=== PATIENT | male | born 1955 | race Two or more races ===

== ENCOUNTER 2023-11-27 11:23 | Inpatient (IN) | payer MEDICARE, BC ==
[2023-11-25 10:54] LABS: Basophils # (auto) 0 10 ^3/uL (0-0.2); Basophils % (auto) 0.3 % (0.0-2.0); Eosinophils # (auto) 0.1 10 ^3/uL (0-0.8); Eosinophils % (auto) 1.7 % (0.0-7.0); Hematocrit 47.4 % (41.0-53.0); Hemoglobin 16.7 g/dL (13.5-17.5); Lymphocytes # (auto) 1.2 10 ^3/uL (0.4-5.4); Lymphocytes % (auto) 15.2 % (10.0-50.0); Mean Corpuscular Hemoglobin 32.4 pg (28.0-32.0); Mean Corpuscular Hgb Conc. 35.3 g/dL (32.0-36.0); Mean Corpuscular Volume 91.8 fL (80.0-100.0); Monocytes # (auto) 0.5 10 ^3/uL (0-1.3); Monocytes % (auto) 7.1 % (0.0-12.0); Neutrophils # (auto) 5.8 10 ^3/uL (1.6-8.6); Neutrophils % (auto) 75.7 % (37.0-80.0); Nucleated Red Blood Cells % 0.1 %; Red Blood Cells 5.17 10^6/uL (4.5-5.90); Red Cell Distribution Width 14.1 % (11.8-14.3); White Blood Cell 7.6 10^3/uL (4.4-10.8)
[2023-11-25 10:56] LABS: INR 1.07 (0.9-1.15); Partial Thromboplastin Time 30.1 SEC (24.5-34.5); Prothrombin Time 11.3 sec (9.3-11.8)
[2023-11-25 11:25] LABS: Alanine Aminotransferase 16 U/L (7-40); Albumin 4.4 g/dL (3.2-4.8); Alkaline Phosphatase 78 U/L (46-116); Anion Gap 4 (5-15); Aspartate Aminotransferase 11 U/L (13-40); BUN/Creatinine Ratio 13.8 (10.0-20.0); Bilirubin, Total 0.9 mg/dL (0.2-1.0); Blood Urea Nitrogen 13 mg/dL (9-23); Calcium 9.4 mg/dL (8.7-10.4); Carbon Dioxide 28 mmol/L (20-30); Chloride 109 mmol/L (98-107); Glucose 93 mg/dL (74-106); Potassium 4.4 mmol/L (3.5-5.1); Sodium 141 mmol/L (136-145); Total Protein 6.7 g/dL (5.7-8.2)
[2023-11-25 13:47] LABS: Urine Bacteria None Seen /hpf (None Seen)
[2023-11-25 14:00] LABS: Urine Blood Negative /uL (Negative); Urine Clarity Clear (Clear); Urine Color Yellow (Yellow); Urine Mucus FEW (None Seen); Urine Protein, UAD TRACE (Negative); Urine Specific Gravity 1.028 (1.001-1.035); Urine Urobilinogen 2 mg/dL (Negative); Urine WBC 2 /hpf (0 - 3); Urine pH 5.5 (5.0-9.0)
[~2023-11-27] VITALS: Ht 175.3 cm; Wt 94.9 kg
[~2023-11-27 11:23] MED LIST: LATA0.008 OP; LISI40TA16 PO; TIMO0.5S28 OP
[2023-11-27] MEDS: ceFAZolin 2 GM/D5W50ml 50 ML IV ONE (13:19)
[2023-11-27] MEDS: CELECOXIB 100 MG CAP PO ONE (13:30)
[2023-11-27] MEDS: ACETAMINOPHEN IV 1000 MG/100ML (10MG/ML) IV ONE (13:30)
[2023-11-27] MEDS: GABAPENTIN 400 MG CAP PO ONE (13:30)
[2023-11-27] MEDS ORDERED: PROPOFOL 10 MG/ML 20 ML IV ONE ×4 (14:13→17:20)
[2023-11-27] MEDS ORDERED: KETOROLAC TROMETH 30 MG/ML 1ML VIAL ONE (14:13)
[2023-11-27] MEDS ORDERED: ONDANSETRON HCL 4 MG/2 ML VIAL ONE (14:13)
[2023-11-27] MEDS ORDERED: LIDOCAINE 2% (LOCAL ANESTH.) PF 5ml SDV ONE (14:13)
[2023-11-27] MEDS ORDERED: fentaNYL CITRATE 100 MCG/2 ML VL ONE (14:13)
[2023-11-27] MEDS ORDERED: KETAMINE 50mg/ML 1ml syringe ONE (14:13)
[2023-11-27] MEDS ORDERED: DexAMETHasone SOD PHOS 10MG/1ML VIAL INJ ONE ×2 (14:13→15:25)
[2023-11-27] MEDS ORDERED: GLYCOPYRROLATE 0.2 MG/ML 1ML VIAL ONE (14:13)
[2023-11-27] MEDS: ROPIVACAINE 0.5% (5MG/ML) 20ML AMPULE IJ ONE ×2 (14:51→16:20)
[2023-11-27] MEDS: TRANEXAMIC ACID 20 ML ONE (14:51)
[2023-11-27] MEDS: VANCOMYCIN HCL 1000 MG VL ONE (15:15)
[2023-11-27] MEDS ORDERED: ePHEDrine SULFATE 50 MG/ML AMP ONE (16:04)
[2023-11-27] MEDS: VANCOMYCIN HCL 1000 MG VL IV ONE (16:20)
[2023-11-27] MEDS ORDERED: oxyCODONE HCL 5MG TAB PO PRN ×2 (17:15→17:45)
[2023-11-27] MEDS ORDERED: ACETAMINOPHEN 325 MG TAB PO PRN (17:15)
[2023-11-27] MEDS: D5W/LACTATED RINGERS 1,000 ML IV SCH (17:15)
[2023-11-27 17:33] VITALS: O2SAT 95
[2023-11-27] MEDS ORDERED: HYDROmorphone HCL 2 MG/ML VL/or syr IV PRN (17:45)
[2023-11-27] MEDS ORDERED: hydrALAZINE HCL 20 MG/ML VL IV PRN (17:45)
[2023-11-27] MEDS ORDERED: ePHEDrine SULFATE 50 MG/ML AMP IV PRN (17:45)
[2023-11-27] MEDS ORDERED: ONDANSETRON HCL 4 MG/2 ML VIAL IV PRN (17:45)
[2023-11-27] MEDS ORDERED: fentaNYL CITRATE 100 MCG/2 ML VL IV PRN (17:45)
[2023-11-27] MEDS ORDERED: NALOXONE HCL 0.4 MG/ML VIAL IV PRN (17:45)
[2023-11-27] MEDS ORDERED: FLUMAZENIL 0.1 MG/ML INJ 10ML MDV IV PRN (17:45)
[2023-11-27] MEDS: KETOROLAC TROMETH 30 MG/ML 1ML VIAL IV SCH (18:00)
[2023-11-27] MEDS: ACETAMINOPHEN 325 MG TAB PO SCH (18:00)
[2023-11-27 18:30] VITALS: BP 141/85; PULSE 56; RESP 18; TEMP 98.4; O2SAT 97
[2023-11-27 20:09] VITALS: BP 141/85; PULSE 56; PULSE 69; RESP 18; TEMP 98.4; O2SAT 92; O2SAT 97
[2023-11-27 21:00] VITALS: BP 147/90; PULSE 69; RESP 18; TEMP 97; O2SAT 92
[2023-11-27] MEDS: ceFAZolin 2 GM/D5W50ml 50 ML IV SCH (21:00)
[2023-11-27] MEDS: PREGABALIN 25 MG CAP PO SCH (21:06)
[2023-11-28] MEDS: oxyCODONE HCL 5MG TAB PO PRN (00:50)
[2023-11-28 05:00] VITALS: BP 120/73; PULSE 66; RESP 17; TEMP 97.3; O2SAT 98
[2023-11-28 07:09] LABS: Anion Gap 8 (5-15); Carbon Dioxide 22 mmol/L (20-30); Chloride 109 mmol/L (98-107); Potassium 4.2 mmol/L (3.5-5.1); Sodium 139 mmol/L (136-145)
[2023-11-28 07:11] LABS: Basophils # (auto) 0 10 ^3/uL (0-0.2); Eosinophils # (auto) 0 10 ^3/uL (0-0.8); Hemoglobin 14.7 g/dL (13.5-17.5); Lymphocytes # (auto) 0.5 10 ^3/uL (0.4-5.4); Lymphocytes % (auto) 2.9 % (10.0-50.0); Mean Corpuscular Hemoglobin 31.5 pg (28.0-32.0); Mean Corpuscular Hgb Conc. 35.1 g/dL (32.0-36.0); Mean Corpuscular Volume 89.8 fL (80.0-100.0); Monocytes # (auto) 0.6 10 ^3/uL (0-1.3); Monocytes % (auto) 3.1 % (0.0-12.0); Red Blood Cells 4.68 10^6/uL (4.5-5.90); Red Cell Distribution Width 13.6 % (11.8-14.3); White Blood Cell 18.1 10^3/uL (4.4-10.8)
[2023-11-28 07:15] LABS: Blood Urea Nitrogen 11 mg/dL (9-23); Glucose 151 mg/dL (74-106)
[2023-11-28 08:00] VITALS: PULSE 79; RESP 16; O2SAT 94
[2023-11-28] MEDS: LISINOPRIL 20 MG TAB PO SCH (08:00)
[2023-11-28 08:54] VITALS: BP 107/71; PULSE 79; RESP 20; TEMP 98.3; O2SAT 94
[2023-11-28] MEDS ORDERED: LATA0.008 EACHEYE (09:00)
[2023-11-28] MEDS ORDERED: TIMO0.5S28 EACHEYE (09:00)
[2023-11-28] MEDS ORDERED: LATANOPROST 0.005 % OPTH(EYE) SOL 2.5ML OP SCH (10:00)
[2023-11-28] MEDS ORDERED: TIMOLOL MAL 0.5% OPTH(EYE) SOL 5ML OP SCH (10:00)
[2023-11-28] MEDS: ASPirin 81 mg TAB PO SCH (11:09)
[2023-11-28 12:31] VITALS: BP 114/65; PULSE 60; RESP 20; TEMP 98.3; O2SAT 93
[2023-11-28 13:00] VITALS: BP 114/65; PULSE 60; RESP 20; TEMP 98.3; O2SAT 93
[2023-11-28] MEDS ORDERED: LATANOPROST 0.005 % OPTH(EYE) SOL 2.5ML EACHEYE SCH (18:00)
[2023-11-28] MEDS ORDERED: TIMOLOL MAL 0.5% OPTH(EYE) SOL 5ML EACHEYE SCH (22:00)
[2023-11-29] MEDS ORDERED: LISINOPRIL 20 MG TAB PO SCH (08:00)
== END 2023-11-28 14:08 | disposition home or self-care (01) | DRG 470 ==
LOC: SUR 11:23 → OVERFLOW 17:18 → WEST WING 18:30
PROVIDERS: ADMIT Orthopaedic Surgery; ATTEND Internal Medicine
PROC: 0SRC069 Replacement of Right Knee Joint with Oxidized Zirconium on Polyethylene Synthetic Substitute, Cemented, Open Approach (ICD-10-PCS; principal; 2023-11-27 15:24)
DX: M17.11 Unilateral primary osteoarthritis, right knee (principal); I10 Essential (primary) hypertension; E66.9 Obesity, unspecified; H40.9 Unspecified glaucoma; Z83.3 Family history of diabetes mellitus; Z82.49 Family history of ischemic heart disease and other diseases of the circulatory system; Z68.30 Body mass index [BMI] 30.0-30.9, adult
CPT/HCPCS: 36415; 73560; 80048; 80053; 81001; 85025; 85610; 85730; 86850; 86900; 86901; 97163; G0378; J0131; J1100; J1885; J2001; J2405; J2704

== ENCOUNTER 2024-05-26 06:22 | Inpatient (IN) | payer MEDICARE, BC ==
[2024-05-22 11:30] LABS: Urine Bacteria None Seen /hpf (None Seen)
[2024-05-22 11:43] LABS: Basophils # (auto) 0 10 ^3/uL (0-0.2); Basophils % (auto) 0.4 % (0.0-2.0); Eosinophils # (auto) 0.2 10 ^3/uL (0-0.8); Eosinophils % (auto) 1.4 % (0.0-7.0); Hematocrit 47.4 % (41.0-53.0); Hemoglobin 16.3 g/dL (13.5-17.5); Lymphocytes % (auto) 8.7 % (10.0-50.0); Mean Corpuscular Hemoglobin 30.8 pg (28.0-32.0); Mean Corpuscular Hgb Conc. 34.4 g/dL (32.0-36.0); Mean Corpuscular Volume 89.4 fL (80.0-100.0); Monocytes # (auto) 0.9 10 ^3/uL (0-1.3); Monocytes % (auto) 7.5 % (0.0-12.0); Neutrophils # (auto) 9.5 10 ^3/uL (1.6-8.6); Platelet Count (auto) 205 10^3/uL (140-450); Red Cell Distribution Width 14.8 % (11.8-14.3); White Blood Cell 11.6 10^3/uL (4.4-10.8)
[2024-05-22 11:46] LABS: INR 1.09 (0.9-1.15); Partial Thromboplastin Time 28.8 SEC (24.5-34.5); Prothrombin Time 11.5 sec (9.3-11.8)
[2024-05-22 12:02] LABS: Alanine Aminotransferase 14 U/L (7-40); Albumin 4.8 g/dL (3.2-4.8); Alkaline Phosphatase 87 U/L (46-116); Anion Gap 5 (5-15); Aspartate Aminotransferase 17 U/L (13-40); BUN/Creatinine Ratio 11.2 (10.0-20.0); Bilirubin, Total 0.8 mg/dL (0.2-1.0); Blood Urea Nitrogen 12 mg/dL (9-23); Calcium 10.1 mg/dL (8.7-10.4); Carbon Dioxide 27 mmol/L (20-31); Glucose 94 mg/dL (74-106); Potassium 4.4 mmol/L (3.5-5.1); Sodium 140 mmol/L (136-145); Total Protein 7.4 g/dL (5.7-8.2)
[2024-05-22 12:03] LABS: Chloride 108 mmol/L (98-107)
[2024-05-22 12:39] LABS: Urine Blood Negative /uL (Negative); Urine Clarity Clear (Clear); Urine Color Light-Yellow (Yellow); Urine Hyaline Cast MOD /lpf (0 - 2); Urine Mucus FEW (None Seen); Urine Protein, UAD TRACE (Negative); Urine Squamous Epithelial Cell None Seen /hpf (<5); Urine Urobilinogen Normal (Negative); Urine WBC 2 /hpf (0 - 3)
[~2024-05-26] VITALS: Ht 175.3 cm; Wt 100.0 kg
[~2024-05-26 06:22] MED LIST changes: +LATA0.008 EACHEYE; -LATA0.008 OP; +NAP500T PO; +ROSU40TA81 PO; +TIMO0.5S28 EACHEYE; -TIMO0.5S28 OP
[2024-05-26] MEDS ORDERED: GLYCOPYRROLATE 0.2 MG/ML 1ML VIAL ONE (06:52)
[2024-05-26] MEDS ORDERED: LIDOCAINE 1% INJ PF 5ML AMP ONE (06:52)
[2024-05-26] MEDS ORDERED: ONDANSETRON HCL 4 MG/2 ML VIAL ONE (06:52)
[2024-05-26] MEDS ORDERED: DexAMETHasone SOD PHOS 10MG/1ML VIAL INJ ONE ×2 (06:52→07:44)
[2024-05-26] MEDS ORDERED: KETOROLAC TROMETH 30 MG/ML 1ML VIAL ONE (06:52)
[2024-05-26] MEDS ORDERED: PROPOFOL 10 MG/ML 20 ML IV ONE ×3 (06:52→09:38)
[2024-05-26] MEDS: ceFAZolin 2 GM/D5W100ml 100 ML IV ONE (07:45)
[2024-05-26] MEDS: TRANEXAMIC ACID 20 ML ONE (07:53)
[2024-05-26] MEDS: CEFEPIME 1GM/ 50ML 50 ML IV ONE (07:56)
[2024-05-26] MEDS ORDERED: PATIENTS OWN MEDICATION (Lisinopril 40 MG) PO SCH (08:00)
[2024-05-26] MEDS: VANCOMYCIN HCL 1000 MG VL ONE (08:26)
--- NOTE | 2024-05-26 09:34 | DVH ---
INDICATION: SURGERY TECHNIQUE: Single AP view of the pelvis was obtained. COMPARISON: None Findings/ IMPRESSION: Right hip arthroplasty. Refer to operative report.
[2024-05-26] MEDS ORDERED: PATIENTS OWN MEDICATION (Timolol Maleate (Timolol Maleate Ophthalmi) 1 DROP) EACHEYE SCH (10:00)
--- NOTE | 2024-05-26 10:01 | DVHOP2 ---
Operative Report - 2 Report Details Date: 05/26/24 Preop Diagnosis: RIGHT HIP DEGENERATIVE ARTHRITIS Postop Diagnosis: Right hip degenerative arthritis Surgeon: Aurora Logan MD System Support Administrator: Brea LINN Anesthesiologist: Suresh Honeycutt CRNA Anesthesia: Regional Drains: Miguel closed wound suction Implant: DonJoy origin stem size 14, standard offset, minus four neck length, 36 ceramic head, flat polyethylene liner, 56 acetabular shell with two acetabular screws Consent: The patient was informed of the risks and benefits of the procedure. These include but are not limited to complications of anesthesia, postoperative infection, incomplete relief of symptoms, recurrence of symptoms, damage to blood vessels, nerves and tendons, deep venous thrombosis, pulmonary embolism and possible need for repeat surgery in the future. Complications: None Estimated Blood Loss: 100 cc Fluids: See anesthesia record Findings: Acetabular and femoral head osteophytes, head deformity, denuded cartilage with eburnated bone Indications for Surgery: Right hip degenerative arthritis with severe pain and functional impairment despite nonoperative management Name of Procedure Performed Right total hip arthroplasty Procedure Details Procedure Details: The patient was brought to the operating room and given spinal anesthetic with adequate analgesia obtained. The patient was positioned lateral decubitus with the operative side up, stabilized with hip positioners. Axillary roll applied and lower extremities well-padded. Preop patient received IV Ancef, IV cefepime and IV tranexamic acid. Surgical timeout was performed verifying patient, laterality and procedure. The hip and lower extremity were prepped and draped in sterile fashion. Incision was made over the greater trochanter. Subcutaneous dissection and hemostasis were performed with Bovie and aqua mantis. I identified the fascia which was incised with Bovie and Charnley retractor inserted. I identified the gluteus medius that was split at the junction of its anterior and middle thirds with Bovie then incised off the anterior greater trochanter. I incised the anterior gluteus minimus which was elevated off the capsule. I elevated the reflected head of the rectus. I then performed anterior capsulectomy with Bovie. I extended capsular incision posterior medially and superior laterally. The head was dislocated. Femoral neck cut was made with saw and head removed. Head diameter was calipered on the back table. I adjusted retractors to expose the acetabulum. I circumferentially removed labral tissue with Bovie. I removed foveal tissue with Bovie, curette and rongeur. I then began reaming sequentially paying attention to inclination and version as I went. I trialed which was stable so a cetabular implant was brought into the field and tapped into the acetabulum with fair fixation achieved. I decided to augment fixation with two acetabular screws. I positioned the three holes in the posterior superior quadrant/safe zone, drilled, measured with depth gauge and applied 20 mm acetabular screw I placed a 2nd screw in similar fashion. I then brought up the flat liner which was spun to make sure there was no soft tissue entrapment then tapped in and stability verified. I then brought my attention to the proximal femur. The leg was placed in the sterile bag anteriorly. I cleaned up soft tissue at the greater trochanter shoulder with Bovie. I then used a rongeur to clip the lateral neck. I then used a box osteotome, canal finder and lateralizing rasp. I sequentially broached to size 14. I revised femoral neck cut with calcar planer. I trialed with a [0] and minus four neck length and [36] head which was stable. Intraoperative AP pelvis x-ray was obtained to verify length, offset and implant size. It was little bit long on x-ray so I removed the size 14 broach after dislocating. I inserted the 13 broach then used a calcar planer to revise femoral neck cut then again removed the 13 broach and inserted the 14 broach. Broach was removed. I tapped in the femoral implant with good fixation achieved. I trialed with a minus four neck length which was stable so I kristine damien and dried the Medeiros taper and tapped on the femoral head. The hip was again reduced and tested for stability which was good. I irrigated with xperience. I placed 2 grams of vancomycin in the deep and superficial wound. I repaired the minimus and medius to the anterior greater trochanter with #[5] FiberWire in running fashion . I oversewed the repair with 0 Vicryl. I re paired the fascia with #1 Ethibond interrupted [id number]. Deep subcutaneous tissue was closed with 0 Vicryl. Superficial subcutaneous tissue was closed with 2-0 Vicryl. The skin was closed with guillaume. I then applied the Miguel closed wound suction. Patient tolerated the procedure well and was brought to the recovery room in stable condition. Condition Stable Disposition Still a Patient AURORA LOGAN MD May 26, 2024 10:00
[2024-05-26 10:10] VITALS: O2SAT 100
[2024-05-26] MEDS ORDERED: ONDANSETRON HCL 4 MG/2 ML VIAL IV PRN ×2 (10:15→11:00)
--- NOTE | 2024-05-26 10:32 | DVH ---
XY PELVIS AP HISTORY: postop TECHNICAL DATA: Frontal view was obtained of the pelvis. COMPARISON: None FINDINGS: There is no abnormality involving the bony pelvis. The sacroiliac joints appear normal. There is no a bnormality of the symphysis pubis. There is a right hip replacement. Components are well aligned and well seated. No periprosthetic lucency or fracture. Severe left hip joint space narrowing with bone- on-bone apposition. IMPRESSION: 1. No acute fracture or dislocation of the pelvis. 2. Unremarkable appearance of the right hip status post hip replacement. Severe left hip osteoarthri tis.
[2024-05-26] MEDS: HYDROmorphone HCL 2 MG/ML VL/or syr IV PRN (10:55)
[2024-05-26] MEDS ORDERED: ePHEDrine SULFATE 50 MG/ML AMP IV PRN (11:00)
[2024-05-26] MEDS ORDERED: NALOXONE HCL 0.4 MG/ML VIAL IV PRN (11:00)
[2024-05-26] MEDS ORDERED: FLUMAZENIL 0.1 MG/ML INJ 10ML MDV IV PRN (11:00)
[2024-05-26] MEDS ORDERED: fentaNYL CITRATE 100 MCG/2 ML VL IV PRN (11:00)
[2024-05-26] MEDS ORDERED: hydrALAZINE HCL 20 MG/ML VL IV PRN (11:00)
[2024-05-26] MEDS ORDERED: oxyCODONE HCL 5MG TAB PO PRN ×2 (11:30)
[2024-05-26] MEDS: ACETAMINOPHEN IV 1000 MG/100ML (10MG/ML) IV ONE (12:02)
[2024-05-26 12:03] VITALS: BP 123/79; PULSE 58; RESP 16; TEMP 97.8; O2SAT 93
[2024-05-26] MEDS: CELECOXIB 100 MG CAP PO ONE (12:03)
[2024-05-26] MEDS: GABAPENTIN 300 MG CAP PO ONE (12:03)
[2024-05-26] MEDS: HYDROmorphone HCL 2 MG/ML VL/or syr ONE (12:03)
[2024-05-26 13:00] VITALS: BP 150/79; PULSE 58; RESP 16; TEMP 97.8; O2SAT 93
[2024-05-26] MEDS: oxyCODONE HCL 5MG TAB PO ONE (13:23)
[2024-05-26] MEDS: TIMOLOL MAL 0.5% OPTH(EYE) SOL 5ML OP SCH (14:06)
[2024-05-26] MEDS: ACETAMINOPHEN 325 MG TAB PO SCH (14:06)
[2024-05-26] MEDS: ceFAZolin 2 GM/D5W50ml 50 ML IV SCH (14:07)
[2024-05-26] MEDS: KETOROLAC TROMETH 30 MG/ML 1ML VIAL IV SCH (14:10)
[2024-05-26] MEDS: LISINOPRIL 20 MG TAB PO SCH (14:11)
[2024-05-26] MEDS: SODIUM CHLORIDE 0.9% 1,000 ML IV SCH (14:19)
[2024-05-26 17:00] VITALS: BP 124/78; PULSE 66; RESP 16; TEMP 98; O2SAT 93
[2024-05-26] MEDS: LATANOPROST 0.005 % OPTH(EYE) SOL 2.5ML EACHEYE SCH (18:35)
[2024-05-26 20:00] VITALS: PULSE 89; RESP 20; O2SAT 94
[2024-05-26 21:00] VITALS: BP 126/80; PULSE 89; RESP 20; TEMP 98.3; O2SAT 94
[2024-05-26] MEDS: PREGABALIN 25 MG CAP PO SCH (22:18)
[2024-05-27 00:49] VITALS: BP 108/59; PULSE 69; RESP 19; TEMP 98.4; O2SAT 93
[2024-05-27 05:00] VITALS: BP 102/67; PULSE 69; RESP 18; TEMP 97.8; O2SAT 93
[2024-05-27 06:19] LABS: Basophils # (auto) 0 10 ^3/uL (0-0.2); Basophils % (auto) 0.1 % (0.0-2.0); Eosinophils # (auto) 0 10 ^3/uL (0-0.8); Hematocrit 35.9 % (41.0-53.0); Hemoglobin 12.2 g/dL (13.5-17.5); Lymphocytes # (auto) 0.6 10 ^3/uL (0.4-5.4); Lymphocytes % (auto) 3.4 % (10.0-50.0); Mean Corpuscular Hemoglobin 30.8 pg (28.0-32.0); Mean Corpuscular Hgb Conc. 34.1 g/dL (32.0-36.0); Mean Corpuscular Volume 90.4 fL (80.0-100.0); Monocytes # (auto) 1.4 10 ^3/uL (0-1.3); Neutrophils # (auto) 15.8 10 ^3/uL (1.6-8.6); Neutrophils % (auto) 88.5 % (37.0-80.0); Nucleated Red Blood Cells % 0.1 %; Platelet Count (auto) 169 10^3/uL (140-450); Red Blood Cells 3.97 10^6/uL (4.5-5.90); Red Cell Distribution Width 14.1 % (11.8-14.3); White Blood Cell 17.9 10^3/uL (4.4-10.8)
[2024-05-27 06:27] LABS: Anion Gap 7 (5-15); Carbon Dioxide 22 mmol/L (20-31); Potassium 4.4 mmol/L (3.5-5.1); Sodium 138 mmol/L (136-145)
[2024-05-27 06:28] LABS: Calcium 9.1 mg/dL (8.7-10.4)
[2024-05-27 06:33] LABS: BUN/Creatinine Ratio 16.5 (10.0-20.0); Blood Urea Nitrogen 17 mg/dL (9-23); Chloride 109 mmol/L (98-107); Glucose 178 mg/dL (74-106)
[2024-05-27 08:47] VITALS: BP 106/62; PULSE 60; RESP 16; TEMP 98; O2SAT 93
[2024-05-27] MEDS: APIXABAN 2.5 MG TAB PO SCH (09:39)
--- NOTE | 2024-05-27 10:39 | DVHDS2 ---
Discharge Summary Date of Admission May 26, 2024 at 10:41 Date of Discharge: May 27, 2024 Labs/Diagnostic Data: Laboratory Results Test 05/27/24 05:03 05/22/24 11:27 White Blood Count 17.9 10^3/uL (4.4-10.8) Red Blood Count 3.97 10^6/uL (4.5-5.90) Hemoglobin 12.2 g/dL (13.5-17.5) Hematocrit 35.9 % (41.0-53.0) Mean Corpuscular Volume 90.4 fL (80.0-100.0) Mean Corpuscular Hemoglobin 30.8 pg (28.0-32.0) Mean Corpuscular Hemoglobin Concent 34.1 g/dL (32.0-36.0) Red Cell Distribution Width 14.1 % (11.8-14.3) Platelet Count 169 10^3/uL (140-450) Mean Platelet Volume 9.6 fL (6.9-10.8) Neutrophils (%) (Auto) 88.5 % (37.0-80.0) Lymphocytes (%) (Auto) 3.4 % (10.0-50.0) Monocytes (%) (Auto) 8.0 % (0.0-12.0) Eosinophils (%) (Auto) 0.0 % (0.0-7.0) Basophils (%) (Auto) 0.1 % (0.0-2.0) Neutrophils # (Auto) 15.8 10 ^3/uL (1.6-8.6) Lymphocytes # (Auto) 0.6 10 ^3/uL (0.4-5.4) Monocytes # (Auto) 1.4 10 ^3/uL (0-1.3) Eosinophils # (Auto) 0 10 ^3/uL (0-0.8) Basophils # (Auto) 0 10 ^3/uL (0-0.2) Nucleated Red Blood Cells 0.1 % Sodium Level 138 mmol/L (136-145) Potassium Level 4.4 mmol/L (3.5-5.1) Chloride Level 109 mmol/L (98-107) Carbon Dioxide Level 22 mmol/L (20-31) Anion Gap 7 (5-15) Blood Urea Nitrogen 17 mg/dL (9-23) Creatinine 1.03 mg/dL (0.700-1.30) Glomerular Filtration Rate Calc 80 mL/min (>90) BUN/Creatinine Ratio 16.5 (10.0-20.0) Serum Glucose 178 mg/dL (74-106) Calcium Level 9.1 mg/dL (8.7-10.4) Prothrombin Time 11.5 sec (9.3-11.8) Prothrombin Time INR 1.09 (0.9-1.15) Activated Partial Thromboplast Time 28.8 SEC (24.5-34.5) Urine Color Light-yellow (Yellow) Urine Clarity Clear (Clear) Urine pH 6.0 (5.0-9.0) Urine Specific [place] 1.020 (1.001-1.035) Urine Protein Trace (Negative) Urine Ketones Negative (Negative) Urine Blood Negative /uL (Negative) Urine Nitrite Negative (Negative) Urine Bilirubin Negative (Negative) Urine Urobilinogen Normal mg/dL (Negative) Urine Leukocyte Esterase Negative /uL (Negative) Urine RBC None seen /hpf (0 - 3) Urine WBC 2 /hpf (0 - 3) Urine Squamous Epithelial Cells None seen /hpf (<5) Urine Bacteria None seen /hpf (None Seen) Urine Hyaline Casts Mod /lpf (0 - 2) Urine Mucus Few (None Seen) Urine Glucose Normal mg/dL (Normal) Total Bilirubin 0.8 mg/dL (0.2-1.0) Aspartate Amino Transferase (AST) 17 U/L (13-40) Alanine Aminotransferase (ALT) 14 U/L (7-40) Alkaline Phosphatase 87 U/L (46-116) Total Protein 7.4 g/dL (5.7-8.2) Albumin 4.8 g/dL (3.2-4.8) Other Laboratory Tests 05/27/24 05:03 Brief Hx & Hospital Course: Patient was brought to the hospital yesterday to undergo a right total hip arthroplasty, he tolerated the procedure well without complication was kept overnight for postoperative observation. He has remained medically stable and denied any overnight events. Patient reports that he was able to get up and walk with the help of physical therapy and his walker and was able to get down the le to the nurse's station and back to his bed with some postoperative hip pain. Patient is otherwise feeling well denying any other complaints or concerns during my evaluation and would like to go home Condition at Discharge: Stable Final Diagnosis/Problems List Right hip degenerative arthritis Discharge Disposition: Home Discharge Instruct/Medications Diet: Regular Activity: See Comment Activity comment: Patient advised to weightbear as tolerated with the assistance of a walker Follow Up/Referral: I instructed our office in 10-14 days for his 1st postoperative evaluation Medications: Rx sent via our outpatient EMR system Discharge Statement: "Patient was advised to return to the ER or call 911 if any headaches, dizziness, shortness of breath, chest pain, abdominal pain, bleeding, fevers, or worsening of medical condition. Patient was counseled about treatment plan, medications, possible side effects, patientverbalized understanding. All questions were answered to the best of my ability. This discharge took greater then 30 minutes in planning, reviewing documentation, counseling the patient, and discussing with other team members." ASSESSMENT ASSESSMENT Assessment Right hip degenerative arthritis ALPA CRYSTAL May 27, 2024 10:39
[2024-05-27 11:22] VITALS: BP 106/62; TEMP 36.7
[2024-05-27 12:50] VITALS: BP 119/76; PULSE 72; RESP 18; TEMP 97.8; O2SAT 95
--- NOTE | 2024-05-27 13:33 | DVHPN2 ---
Progress Note - Dictate Date Seen: May 27, 2024 Medical Necessity Reason Pt with a Central, PICC or Fol: No Subjective Patient was lying comfortably in bed during my evaluation reports some postoperative hip pain that is being well managed with the help of pain medication. Patient reports that he was able to get up and walk with the help of physical therapy and his walker and was able to get down the le around the nurses station and back to his bed with his pain being manageable. Patient is otherwise feeling well denying any other complaints or concerns during my evaluation and would like to go home. vital signs Vital Sign Date Time Temp Pulse Resp B/P (MAP) Pulse Ox O2 Delivery O2 Flow Rate FiO2 05/27/24 12:50 97.8 72 18 119/76 (90) 95 97.8 05/27/24 08:00 Room Air* 0 21 Total Intake and Output 05/26/24 05/26/24 05/27/24 15:00 23:00 07:00 Intake Total 170 ml 650 ml 530 ml Output Total 150 ml 350 ml 1350 ml Balance 20 ml 300 ml -820 ml medications Current Medications Medications Dose Ordered Sig/Darren Route Start Time Stop Time Status Last Admin Dose Admin Latanoprost 1 drop QPM EACHEYE 05/26/24 18:00 05/26/24 18:35 1 DROP Patient Own Medication 1 drop BID EACHEYE 05/26/24 10:00 UNV Lisinopril 40 mg DAILY PO 05/26/24 10:00 05/27/24 09:40 40 MG Timolol Maleate 1 drop BID OP 05/26/24 10:00 05/27/24 09:38 1 DROP Pregabalin 50 mg BID PO 05/26/24 22:00 05/27/24 09:40 50 MG Apixaban 2.5 mg BID PO 05/27/24 10:00 07/01/24 09:59 05/27/24 09:39 2.5 MG Sodium Chloride 1,000 ml @ 125 mls/hr Q8H IV 05/26/24 11:30 05/27/24 09:44 125 MLS/HR Acetaminophen 650 mg Q6HP PO 05/26/24 12:00 05/27/24 12:53 650 MG Ketorolac Tromethamine 15 mg Q6HR IV 05/26/24 12:00 05/31/24 11:59 05/27/24 12:53 15 MG Ondansetron HCl 4 mg Q4HP PRN IV 05/26/24 10:15 Oxycodone HCl 5 mg Q4HP PRN PO 05/26/24 11:30 Oxycodone HCl 10 mg Q4HP PRN PO 05/26/24 11:30 objective A&O x4 in no acute distress Hip range of motion grossly limited with pain on movement Miguel dressing clean, dry, intact, and maintaining suction No distal edema or calf tenderness to palpation Neurovascularly intact with cap refill less than 2 seconds laboratory and microbiology Laboratory Tests 05/27/24 05:03 Test 05/27/24 05:03 Range/Units Serum Glucose 178 H 74-106 mg/dL Assessment/Plan Patient to be discharged home and advised to remain weight-bearing as tolerated with the assistance of a walker and to maintain his dressings clean, dry, intact, and maintaining suction and to call our office if he has any questions or concerns. I also instructed the patient to follow up with our office in 10- 14 days for his 1st postoperative evaluation. Rx sent via our outpatient EMR system. He understood and agreed. Plan discussed with: Patient ALPA CRYSTAL May 27, 2024 13:33
== END 2024-05-27 13:50 | disposition home health service (06) | DRG 470 ==
LOC: SUR 06:22 → OVERFLOW 10:41 → WEST WING 11:38
PROVIDERS: ADMIT Orthopaedic Surgery; ATTEND Orthopaedic Surgery
PROC: 0SR904Z Replacement of Right Hip Joint with Ceramic on Polyethylene Synthetic Substitute, Open Approach (ICD-10-PCS; principal; 2024-05-26 07:45)
DX: M16.11 Unilateral primary osteoarthritis, right hip (principal); R71.0 Precipitous drop in hematocrit; Z79.899 Other long term (current) drug therapy
CPT/HCPCS: 36415; 72170; 73501; 80048; 80053; 81001; 85025; 85610; 85730; 86850; 86900; 86901; 97116; 97163; 97530; G0378; J0131; J1100; J1885; J2405; J2704

== ENCOUNTER 2024-09-09 06:05 | Inpatient (IN) | payer MEDICARE, BC ==
[2024-09-07 10:58] LABS: Urine Bacteria None Seen /hpf (None Seen)
[2024-09-07 11:09] LABS: Basophils # (auto) 0 10 ^3/uL (0-0.2); Basophils % (auto) 0.4 % (0.0-2.0); Eosinophils # (auto) 0.1 10 ^3/uL (0-0.8); Eosinophils % (auto) 1.2 % (0.0-7.0); Hematocrit 47.6 % (41.0-53.0); Hemoglobin 16.6 g/dL (13.5-17.5); Lymphocytes # (auto) 0.9 10 ^3/uL (0.4-5.4); Lymphocytes % (auto) 10.4 % (10.0-50.0); Mean Corpuscular Hemoglobin 30.5 pg (28.0-32.0); Mean Corpuscular Hgb Conc. 34.9 g/dL (32.0-36.0); Mean Corpuscular Volume 87.2 fL (80.0-100.0); Monocytes # (auto) 0.7 10 ^3/uL (0-1.3); Monocytes % (auto) 8.5 % (0.0-12.0); Neutrophils # (auto) 6.9 10 ^3/uL (1.6-8.6); Neutrophils % (auto) 79.5 % (37.0-80.0); Nucleated Red Blood Cells % 0.1 %; Platelet Count (auto) 208 10^3/uL (140-450); Red Blood Cells 5.46 10^6/uL (4.5-5.90); Red Cell Distribution Width 14.7 % (11.8-14.3); White Blood Cell 8.7 10^3/uL (4.4-10.8)
[2024-09-07 11:12] LABS: Urine Blood Negative /uL (Negative); Urine Clarity Clear (Clear); Urine Color Light-Yellow (Yellow); Urine Protein, UAD Negative (Negative); Urine Specific Gravity 1.007 (1.001-1.035); Urine Squamous Epithelial Cell None Seen /hpf (<5); Urine Urobilinogen Normal (Negative); Urine WBC 1 /HPF (0-3)
[2024-09-07 11:23] LABS: INR 1.07 (0.9-1.15); Partial Thromboplastin Time 30.5 SEC (24.5-34.5); Prothrombin Time 11.3 sec (9.3-11.8)
[2024-09-07 11:50] LABS: Alanine Aminotransferase 15 U/L (7-40); Alkaline Phosphatase 85 U/L (46-116); Anion Gap 9 (5-15); Aspartate Aminotransferase 17 U/L (13-40); BUN/Creatinine Ratio 10.6 (10.0-20.0); Bilirubin, Total 0.9 mg/dL (0.2-1.0); Blood Urea Nitrogen 11 mg/dL (9-23); Calcium 10.1 mg/dL (8.7-10.4); Carbon Dioxide 27 mmol/L (20-31); Chloride 104 mmol/L (98-107); Glucose 99 mg/dL (74-106); Potassium 4.5 mmol/L (3.5-5.1); Sodium 140 mmol/L (136-145); Total Protein 7.7 g/dL (5.7-8.2)
[2024-09-07 11:53] LABS: Albumin 5.1 g/dL (3.2-4.8)
[~2024-09-09] VITALS: Ht 175.3 cm; Wt 91.8 kg
[2024-09-09] VITALS (15 sets, daily range): BP systolic 112–153; BP diastolic 67–96; PULSE 68–97; RESP 16–19; TEMP 98.1–98.3; O2SAT 94–100
[~2024-09-09 06:05] MED LIST changes: -LISI40TA16 PO; -NAP500T PO; +[UNRECOGNIZED DRUG - CODE] PO
[2024-09-09] MEDS ORDERED: MORPHINE SULF PF 5 MG/10 ML VIAL ONE (07:14)
[2024-09-09] MEDS ORDERED: KETAMINE 50mg/ML 1ml syringe ONE ×2 (07:14→08:12)
[2024-09-09] MEDS ORDERED: MIDAZOLAM HCL 2MG/2ML 2ml VIAL (1mg/ml) ONE (07:15)
[2024-09-09] MEDS ORDERED: fentaNYL CITRATE 100 MCG/2 ML VL ONE (07:15)
[2024-09-09] MEDS ORDERED: ONDANSETRON HCL 4 MG/2 ML VIAL ONE (07:16)
[2024-09-09] MEDS ORDERED: ePHEDrine SULFATE 50 MG/ML AMP ONE (07:16)
[2024-09-09] MEDS ORDERED: KETOROLAC TROMETH 30 MG/ML 1ML VIAL ONE (07:16)
[2024-09-09] MEDS ORDERED: GLYCOPYRROLATE 0.2 MG/ML 1ML VIAL ONE (07:16)
[2024-09-09] MEDS: VANCOMYCIN HCL 1000 MG VL ONE (07:26)
[2024-09-09] MEDS: ceFAZolin 2 GM/D5W50ml 50 ML IV ONE (07:40)
[2024-09-09] MEDS: TRANEXAMIC ACID 20 ML ONE (07:40)
[2024-09-09] MEDS: CEFEPIME 1GM/ 50ML 50 ML IV ONE (07:50)
[2024-09-09] MEDS: ROPIVACAINE 0.5% (5MG/ML) 20ML AMPULE IJ ONE ×2 (08:12)
[2024-09-09] MEDS ORDERED: PROPOFOL 10 MG/ML 20 ML IV ONE (08:22)
--- NOTE | 2024-09-09 09:17 | DVHOP2 ---
Operative Report - 2 Report Details Date: 09/09/24 Preop Diagnosis: Left hip degenerative arthritis Postop Diagnosis: Left hip degenerative arthritis Surgeon: Aurora Logan MD Turnstile Collector: Brea LINN Anesthesiologist: Terence Anesthesia: Regional Drains: Miguel closed wound suction Implant: Keith cup size 56 with a flat liner, size 14 origin DonJoy stem standard offset with a 0 neck length neck and 36 ceramic head Consent: The patient was informed of the risks and benefits of the procedure. These include but are not limited to complications of anesthesia, postoperative infection, incomplete relief of symptoms, recurrence of symptoms, damage to blood vessels, nerves and tendons, deep venous thrombosis, pulmonary embolism and possible need for repeat surgery in the future. Complications: None Estimated Blood Loss: 150 cc Fluids: See anesthesia record Findings: Osteophytes, head deformity, denuded cartilage with eburnated bone Indications for Surgery: Left hip degenerative arthritis with severe pain and functional impairment despite adequate nonoperative management Name of Procedure Performed Left total hip arthroplasty Procedure Details Procedure Details: The patient was brought to the operating room and given spinal anesthetic with adequate analgesia obtained. The patient was positioned lateral decubitus with the operative side up, stabilized with hip positioners. Axillary roll applied and lower extremities well-padded. Preop patient received IV Ancef, cefepime and IV tranexamic acid. Surgical timeout was performed verifying patient, laterality and procedure. The hip and lower extremity were prepped and draped in sterile fashion. Incision was made over the greater trochanter. I used 20 cc of 0.5% ropivacaine to augment analgesia. Subcutaneous dissection and hemostasis were performed with Bovie and aqua mantis. I identified the fascia which was incised with Bovie and Charnley retractor inserted. I identified the gluteus medius that was split at the junction of its anterior and middle thirds with Bovie then incised off the anterior greater trochanter. I incised the anterior gluteus minimus which was elevated off the capsule. I elevated the reflected head of the rectus. I then performed anterior capsulectomy with Bovie. I extended capsular incision posterior medially and superior laterally. The head was dislocated. Femoral neck cut was made with saw and head removed. Head diameter was calipered on the back table. I adjusted retractors to expose the acetabulum. I circumferentially removed labral tissue with Bovie. I removed foveal tissue with Bovie, curette and rongeur. I then began reaming sequentially paying attention to inclination and version as I went. I trialed which was stable so acetabular implant was brought into the field and tapped into the acetabulum with good fixation achieved. I then brought up the flat liner which was spun to make sure there was no soft tissue entrapment then tapped in and stability verified. I then brought my attention to the proximal femur. The leg was placed in the sterile bag anteriorly. I cleaned up soft tissue at the greater trochanter shoulder with Bovie. I then used a rongeur to clip the lateral neck. I then used a box osteotome, canal finder and lateralizing rasp. I sequentially broached to size 14. I trialed with a [0] neck length and [36] head which was stable. Intraoperative AP pelvis x-ray was obtained to verify length, offset and implant size. The hip was dislocated. Neck and head trial removed. Broach was removed. I revised the femoral neck cut with calcar planer. I tapped in the femoral implant with good fixation achieve d. I cleaned and dried the Medeiros taper and tapped on the ceramic head. The hip was again reduced and tested for stability which was good. I irrigated with xperience. I placed a 2 grams of vancomycin in the deep and superficial wound. I repaired the minimus and medius to the anterior greater trochanter with #[5] FiberWire in running fashion . I oversewed the repair with 0 Vicryl. I repaired the fascia with #1 Ethibond interrupted [id number]. Deep subcutaneous tissue was closed with 0 Vicryl. Superficial subcutaneous tissue was closed with 2-0 Vicryl. The skin was closed with guillaume. I then applied the Miguel closed wound suction. Patient tolerated the procedure well and was brought to the recovery room in stable condition. Condition Stable Disposition Still a Patient AURORA LOGAN MD Sep 09, 2024 09:17
[2024-09-09] MEDS ORDERED: ONDANSETRON HCL 4 MG/2 ML VIAL IV PRN ×2 (09:30→09:45)
--- NOTE | 2024-09-09 09:37 | DVH ---
CLINICAL INDICATION: Pain; SURGERY TECHNIQUE: 1 radiographic views of the left hip were obtained. Comparison: XY R HIP 1V XRAY on DOS: 05/26/24 FINDINGS/IMPRESSION: Status post bilateral hip arthroplasties.
[2024-09-09] MEDS ORDERED: NALOXONE HCL 0.4 MG/ML VIAL IV PRN (09:45)
[2024-09-09] MEDS: ONDANSETRON HCL 4 MG/2 ML VIAL IV ONE (09:45)
[2024-09-09] MEDS ORDERED: DexAMETHasone SOD PHOS 10MG/1ML VIAL INJ IV PRN (09:45)
[2024-09-09] MEDS ORDERED: KETOROLAC TROMETH 30 MG/ML 1ML VIAL IV PRN (09:45)
[2024-09-09] MEDS ORDERED: diphenhdrAMINE HCL 50 MG/1 ML VL IV PRN (09:45)
[2024-09-09] MEDS: PREGABALIN 25 MG CAP PO SCH (10:00)
[2024-09-09] MEDS: AMLODIPINE BESYLATE OLMESARTAN PO SCH (10:00)
[2024-09-09] MEDS: TIMOLOL MAL 0.5% OPTH(EYE) SOL 5ML EACHEYE SCH (10:00)
--- NOTE | 2024-09-09 10:24 | DVH ---
XY PELVIS AP HISTORY: postop TECHNICAL DATA: Frontal view was obtained of the pelvis. COMPARISON: XY PELVIS AP on DOS: 05/26/24 FINDINGS: Benítez catheter noted. There is no acute abnormality involving the bony pelvis. Bilateral hip replacements. The components are well aligned and well seated. No acute abnormality. Soft tissue swelling and emphysema about the right hip with skin closure guillaume noted compatible with postoperative findings. IMPRESSION: 1. Unremarkable postop appearance of the left hip status post hip replacement.
[2024-09-09] MEDS: SODIUM CHLORIDE 0.9% 1,000 ML IV SCH (11:30)
[2024-09-09] MEDS ORDERED: oxyCODONE HCL 5MG TAB PO PRN ×2 (11:30)
[2024-09-09] MEDS: EPINEPHrine HCL 1 MG/1 ML AMP ONE (11:42)
[2024-09-09] MEDS: BUPIVACAINE 0.25% INJ 50ML VIAL ONE (11:43)
[2024-09-09] MEDS: DexAMETHasone SOD PHOS 4 MG/1ML SDV INJ ONE (11:43)
[2024-09-09] MEDS: BUPIVACAINE HCL 50 ML ONE (11:43)
[2024-09-09] MEDS: ACETAMINOPHEN 325 MG TAB PO SCH (12:00)
[2024-09-09] MEDS: KETOROLAC TROMETH 30 MG/ML 1ML VIAL IV SCH (12:00)
[2024-09-09] MEDS: ceFAZolin 2 GM/D5W50ml 50 ML IV SCH (14:55)
[2024-09-09] MEDS: LATANOPROST 0.005 % OPTH(EYE) SOL 2.5ML EACHEYE SCH (17:49)
[2024-09-10] VITALS (14 sets, daily range): BP systolic 87–118; BP diastolic 56–77; PULSE 57–79; RESP 14–20; TEMP 97.5–98.3; O2SAT 94–98
[2024-09-10 07:03] LABS: Basophils # (auto) 0 10 ^3/uL (0-0.2); Basophils % (auto) 0.1 % (0.0-2.0); Eosinophils # (auto) 0 10 ^3/uL (0-0.8); Hematocrit 36.9 % (41.0-53.0); Hemoglobin 12.5 g/dL (13.5-17.5); Lymphocytes # (auto) 0.5 10 ^3/uL (0.4-5.4); Mean Corpuscular Hemoglobin 29.9 pg (28.0-32.0); Monocytes # (auto) 1.1 10 ^3/uL (0-1.3); Monocytes % (auto) 8.1 % (0.0-12.0); Neutrophils # (auto) 11.7 10 ^3/uL (1.6-8.6); Neutrophils % (auto) 87.8 % (37.0-80.0); Platelet Count (auto) 181 10^3/uL (140-450); Red Cell Distribution Width 14.5 % (11.8-14.3); White Blood Cell 13.4 10^3/uL (4.4-10.8)
[2024-09-10 07:06] LABS: Calcium 9.5 mg/dL (8.7-10.4); Potassium 4.7 mmol/L (3.5-5.1); Sodium 138 mmol/L (136-145)
[2024-09-10 07:07] LABS: Anion Gap 7 (5-15); Carbon Dioxide 22 mmol/L (20-31)
[2024-09-10 07:10] LABS: Chloride 109 mmol/L (98-107)
[2024-09-10 07:12] LABS: BUN/Creatinine Ratio 13.5 (10.0-20.0); Blood Urea Nitrogen 13 mg/dL (9-23); Glucose 182 mg/dL (74-106)
[2024-09-10] MEDS: APIXABAN 2.5 MG TAB PO SCH (09:40)
--- NOTE | 2024-09-10 16:43 | DVHDS2 ---
Discharge Summary Date of Admission Sep 09, 2024 at 11:28 Date of Discharge: September 10, 2024 Labs/Diagnostic Data: Laboratory Results Test 09/10/24 06:08 09/07/24 10:51 White Blood Count 13.4 10^3/uL (4.4-10.8) Red Blood Count 4.20 10^6/uL (4.5-5.90) Hemoglobin 12.5 g/dL (13.5-17.5) Hematocrit 36.9 % (41.0-53.0) Mean Corpuscular Volume 88.0 fL (80.0-100.0) Mean Corpuscular Hemoglobin 29.9 pg (28.0-32.0) Mean Corpuscular Hemoglobin Concent 34.0 g/dL (32.0-36.0) Red Cell Distribution Width 14.5 % (11.8-14.3) Platelet Count 181 10^3/uL (140-450) Mean Platelet Volume 9.3 fL (6.9-10.8) Neutrophils (%) (Auto) 87.8 % (37.0-80.0) Lymphocytes (%) (Auto) 4.0 % (10.0-50.0) Monocytes (%) (Auto) 8.1 % (0.0-12.0) Eosinophils (%) (Auto) 0.0 % (0.0-7.0) Basophils (%) (Auto) 0.1 % (0.0-2.0) Neutrophils # (Auto) 11.7 10 ^3/uL (1.6-8.6) Lymphocytes # (Auto) 0.5 10 ^3/uL (0.4-5.4) Monocytes # (Auto) 1.1 10 ^3/uL (0-1.3) Eosinophils # (Auto) 0 10 ^3/uL (0-0.8) Basophils # (Auto) 0 10 ^3/uL (0-0.2) Nucleated Red Blood Cells 0.0 % Sodium Level 138 mmol/L (136-145) Potassium Level 4.7 mmol/L (3.5-5.1) Chloride Level 109 mmol/L (98-107) Carbon Dioxide Level 22 mmol/L (20-31) Anion Gap 7 (5-15) Blood Urea Nitrogen 13 mg/dL (9-23) Creatinine 0.96 mg/dL (0.700-1.30) Glomerular Filtration Rate Calc 87 mL/min (>90) BUN/Creatinine Ratio 13.5 (10.0-20.0) Serum Glucose 182 mg/dL (74-106) Calcium Level 9.5 mg/dL (8.7-10.4) Prothrombin Time 11.3 sec (9.3-11.8) Prothrombin Time INR 1.07 (0.9-1.15) Activated Partial Thromboplast Time 30.5 SEC (24.5-34.5) Urine Color Light-yellow (Yellow) Urine Clarity Clear (Clear) Urine pH 6.0 (5.0-9.0) Urine Specific [place] 1.007 (1.001-1.035) Urine Protein Negative (Negative) Urine Ketones Negative (Negative) Urine Blood Negative /uL (Negative) Urine Nitrite Negative (Negative) Urine Bilirubin Negative (Negative) Urine Urobilinogen Normal mg/dL (Negative) Urine Leukocyte Esterase Negative /uL (Negative) Urine RBC <1 /hpf (0 - 3) Urine Microscopic WBC 1 /HPF (0-3) Urine Squamous Epithelial Cells None seen /hpf (<5) Urine Bacteria None seen /hpf (None Seen) Urine Glucose Normal mg/dL (Normal) Total Bilirubin 0.9 mg/dL (0.2-1.0) Aspartate Amino Transferase (AST) 17 U/L (13-40) Alanine Aminotransferase (ALT) 15 U/L (7-40) Alkaline Phosphatase 85 U/L (46-116) Total Protein 7.7 g/dL (5.7-8.2) Albumin 5.1 g/dL (3.2-4.8) Other Laboratory Tests 09/10/24 06:08 Brief Hx & Hospital Course: Patient was brought to the hospital yesterday to undergo a total hip arthroplasty. He tolerated the procedure well without complications and was kept overnight for postoperative observation. He has remained medically stable denying any overnight events and reports some mild postoperative hip pain that is being well managed with the help of pain medication. Patient reports that he was able to get up and walk with the help of physical therapy and his walker and was able to get down the le around the nurses station and back to his bed with minimal pain. Patient is otherwise feeling well denying any other complaints or concerns during my evaluation and is ready to go home. Condition at Discharge: Stable Final Diagnosis/Problems List Left hip degenerative arthritis Discharge Disposition: Home Discharge Instruct/Medications Diet: Regular Activity: See Comment Activity comment: Patient to remain weight-bearing as tolerated with the assistance of a walker Follow Up/Referral: Patient to follow up with our office in 10-14 days for his 1st postoperative evaluation Medications: Rx sent via our outpatient EMR system Discharge Statement: "Patient was advised to return to the ER or call 911 if any headaches, dizziness, shortness of breath, chest pain, abdominal pain, bleeding, fevers, or worsening of medical condition. Patient was counseled about treatment plan, medications, possible side effects, patient�verbalized understanding. All questions were answered to the best of my ability. This discharge took greater then 30 minutes in planning, reviewing documentation, counseling the patient, and discussing with other team members." ASSESSMENT ASSESSMENT Assessment Left hip degenerative arthritis ALPA CRYSTAL September 10, 2024 16:43
--- NOTE | 2024-09-10 16:50 | DVHPN2 ---
Progress Note - Dictate Date Seen: September 10, 2024 Medical Necessity Reason Pt with a Central, PICC or Fol: No Subjective Patient was lying comfortably in bed during my evaluation and reports some mild postoperative hip pain that is being well managed with the help of pain medication. Patient reports that he was able to get up and walk with the help of physical therapy and his walker and get down the le around the nurses station and back to his bed with minimal pain yesterday as well as today. Patient is otherwise feeling well denying any other complaints or concerns during my evaluation and would like to go home. vital signs Vital Sign Date Time Temp Pulse Resp B/P (MAP) Pulse Ox O2 Delivery O2 Flow Rate FiO2 09/10/24 16:33 97.5 70 14 106/58 (74) 97 97.5 09/10/24 08:00 Nasal Cannula* 2 28 Total Intake and Output 09/09/24 09/09/24 09/10/24 15:00 23:00 07:00 Intake Total 120 ml 385 ml 1350 ml Output Total 200 ml 300 ml 1100 ml Balance -80 ml 85 ml 250 ml medications Current Medications Medications Dose Ordered Sig/Darren Route Start Time Stop Time Status Last Admin Dose Admin Latanoprost 1 drop QPM EACHEYE 09/09/24 18:00 09/09/24 17:49 1 DROP Patient Own Medication 1 tab DAILY PO 09/09/24 10:00 Timolol Maleate 1 drop BID EACHEYE 09/09/24 10:00 09/10/24 09:41 1 DROP Pregabalin 50 mg BID PO 09/09/24 10:00 09/10/24 09:40 50 MG Apixaban 2.5 mg BID PO 09/10/24 10:00 10/15/24 09:59 09/10/24 09:40 2.5 MG Sodium Chloride 1,000 ml @ 125 mls/hr Q8H IV 09/09/24 11:30 09/10/24 10:09 125 MLS/HR Acetaminophen 650 mg Q6HP PO 09/09/24 12:00 09/10/24 13:06 650 MG Ketorolac Tromethamine 15 mg Q6HR IV 09/09/24 12:00 09/14/24 11:59 09/10/24 13:08 15 MG Ondansetron HCl 4 mg Q4HP PRN IV 09/09/24 09:30 Oxycodone HCl 5 mg Q4HP PRN PO 09/09/24 11:30 Oxycodone HCl 10 mg Q4HP PRN PO 09/09/24 11:30 Diphenhydramine HCl 25 mg Q4HP PRN IV 09/09/24 09:45 objective A&O x4 in no acute distress Hip range of motion grossly limited with pain on movement Miguel dressing clean, dry, intact, and maintaining suction No distal edema or calf tenderness to palpation Neurovascularly intact with cap refill less than 2 seconds laboratory and microbiology Laboratory Tests 09/10/24 06:08 Test 09/10/24 06:08 Range/Units Serum Glucose 182 H 74-106 mg/dL Assessment/Plan Patient to be discharged home and advised to remain weight-bearing as tolerated with the assistance of a walker. I instructed the patient to follow up with our office in 10-14 days for his 1st postoperative evaluation and to call our office if he has any questions or concerns. Rx sent via our outpatient EMR system. He understood and agreed. Plan discussed with: Patient ALPA CRYSTAL September 10, 2024 16:50
== END 2024-09-10 18:35 | disposition home or self-care (01) | DRG 470 ==
LOC: SUR 06:05 → WEST WING 11:28 → TELE-WESTW 13:38
PROVIDERS: ADMIT Orthopaedic Surgery; ATTEND Orthopaedic Surgery
PROC: 0SRB03Z Replacement of Left Hip Joint with Ceramic Synthetic Substitute, Open Approach (ICD-10-PCS; principal; 2024-09-09 07:32)
DX: M16.12 Unilateral primary osteoarthritis, left hip (principal); Z79.899 Other long term (current) drug therapy
CPT/HCPCS: 36415; 72170; 73501; 80048; 80053; 81001; 85025; 85610; 85730; 86850; 86900; 86901; 97116; 97163; G0378; J0171; J1100; J1885; J2250; J2405; J2704; J3490